=== PATIENT | female | born 1980 | race American Indian/Alaskan Native ===

== ENCOUNTER 2019-11-06 05:28 | Emergency (ER) | payer OTHER ==
[2019-11-06 05:56] VITALS: BP 138/69
[2019-11-06] MEDS ORDERED: ACETAMINOPHEN 325 MG TAB PO ONE (06:05)
[2019-11-06 06:52] LABS: Basophils # (Auto) 0.1 K/mm3 (0.0-0.1); Basophils % (Auto) 0.8 % (0.0-1.8); Eosinophils # (Auto) 0.2 K/mm3 (0.0-0.4); Hematocrit 39.2 % (30.3-42.9); Hemoglobin 12.6 gm/dl (10.1-14.3); Lymphocytes # (Auto) 1.5 K/mm3 (1.2-5.4); Lymphocytes % (Auto) 17.2 % (13.4-35.0); Mean Corpuscular HGB Conc 32 % (30-34); Mean Corpuscular Volume 81 fl (79-97); Monocytes # (Auto) 0.7 K/mm3 (0.0-0.8); Monocytes % (Auto) 7.8 % (0.0-7.3); Platelet Count 332 K/mm3 (140-440); Red Blood Count 4.84 M/mm3 (3.65-5.03); Red Cell Distribution Width 14.7 % (13.2-15.2)
[2019-11-06 07:06] LABS: BUN/Creatinine Ratio 18; Blood Urea Nitrogen 11 mg/dL (7-17); Calcium 9.2 mg/dL (8.4-10.2); Hemolysis Index 39
--- NOTE | 2019-11-06 07:35 | XRay Report ---
CHEST 2 VIEWS INDICATION / CLINICAL INFORMATION: productive cough, fever, chills. COMPARISON: None available. FINDINGS: SUPPORT DEVICES: None. HEART / MEDIASTINUM: No significant abnormality. LUNGS / PLEURA: Mild pulmonary vascular congestion. No evidence of pneumonia or pleural effusion. No pneumothorax. ADDITIONAL FINDINGS: No significant additional findings. IMPRESSION: 1. Mild pulmonary vascular congestion. No evidence of pneumonia at this time. Signer Name: Adriane Woodall MD Signed: 11/06/2019 7:31 AM Workstation Name: [id number]
[2019-11-06] MEDS ORDERED: guaiFENesin 100 MG/5 ML ORAL LIQD PO ONE (07:41)
--- NOTE | 2019-11-06 07:45 | Emergency Department Report ---
Minor Respiratory - HPI Chief Complaint: Upper Respiratory Infection Stated Complaint: FEVER/COUGH Time Seen by Provider: 11/06/19 07:26 Duration: 6 days Pain Location: Throat Severity: mild Minor Respiratory: Yes Able to Tolerate Fluids, Yes Ear Pain, Yes Cough, Yes Fev er, No Rhinorrhea, No Sore Throat, No Sick Contacts, No Hemoptysis, No Chest Pain, No Shortness of Breath Other History: This is a 39-year-old female with no prior medical history presents to ED complaining of fever and cold-like symptoms such as coughing, sore throat and ear pain for the past 6 days. Patient states that she was on a cruise to [place] that returned on October 26 patient states October 30 her symptoms started. Patient states she has been taking TheraFlu with no relief. Patient states she is unsure of sick contacts. Patient denies chest pain, shortness of breath, history of COPD or asthma. Patient does mention that yesterday as she was driving she felt her left eye itching so she rubbed it for quite some time and today when she woke up she started it was a bit pink and some dried yellow discharge to the left eye. She denies vision loss, blurry vision, foreign object or eye. ED Review of Systems ROS: Stated complaint: FEVER/COUGH Other details as noted in HPI Comment: All other systems reviewed and negative ED Past Medical Hx - Past Medical History Previous Medical History?: No - Surgical History Past Surgical History?: No - Social History Smoking Status: Never Smoker Substance Use Type: None - Medications Home Medications: Home Medications Medication Instructions Recorded Confirmed Last Taken Type Benzonatate [Tessalon Perles] 100 mg PO Q8HR #30 capsule 11/06/19 Unknown Rx Tobramycin 0.3% [Tobrex] 1 - 2 drop OP Q8HR #1 bottle 11/06/19 Unknown Rx Minor Respiratory Exam - Exam General: Vital signs noted. No distress. Alert and acting appropriately. HEENT: Yes Moist Mucous Membranes (No orbital swelling, redness or tenderness), No Pharyngeal Erythema, No Pharyngeal Exudates, No Rhinorrhea, No Conjuctival Injection, No Frontal Tenderness, No Maxillary Tenderness Ear: Neither TM Bulge, Neither TM Erythema, Neither EAC Pain, Neither EAC Discharge Neck: Yes Supple, No Adenopathy Lungs: Yes Good Air Exchange, No Wheezes, No Ronchi, No Stridor, No Cough, No Labored Respirations, No Retractions, No Use of Accessory Muscles, No Other Abnormal Lung Sounds Heart: Yes Regular, No Murmur Abdomen: Yes Normal Bowel Sounds, No Tenderness, No Peritoneal Signs Skin: No Rash, No Edema Neurologic: Alert and oriented, no deficits. Musculoskeletal: Unremarkable. ED Course Vital Signs 11/06/19 05:49 Temperature 100.9 F H Pulse Rate 101 H Respiratory 18 Rate Blood Pressure 138/69 O2 Sat by Pulse 97 Oximetry ED Medical Decision Making - Lab Data Result diagrams: 11/06/19 06:31 11/06/19 06:31 Laboratory Last Values WBC 8.6 K/mm3 (4.5-11.0) 11/06/19 06:31 RBC 4.84 M/mm3 (3.65-5.03) 11/06/19 06:31 Hgb 12.6 gm/dl (10.1-14.3) 11/06/19 06:31 Hct 39.2 % (30.3-42.9) 11/06/19 06:31 MCV 81 fl (79-97) 11/06/19 06:31 MCH 26 pg (28-32) L 11/06/19 06:31 MCHC 32 % (30-34) 11/06/19 06:31 RDW 14.7 % (13.2-15.2) 11/06/19 06:31 Plt Count 332 K/mm3 (140-440) 11/06/19 06:31 Lymph % (Auto) 17.2 % (13.4-35.0) 11/06/19 06:31 [place] % (Auto) 7.8 % (0.0-7.3) H 11/06/19 06:31 Eos % (Auto) 2.0 % (0.0-4.3) 11/06/19 06:31 Baso % (Auto) 0.8 % (0.0-1.8) 11/06/19 06:31 Lymph # 1.5 K/mm3 (1.2-5.4) 11/06/19 06:31 [place] # 0.7 K/mm3 (0.0-0.8) 11/06/19 06:31 Eos # 0.2 K/mm3 (0.0-0.4) 11/06/19 06:31 Baso # 0.1 K/mm3 (0.0-0.1) 11/06/19 06:31 Seg Neutrophils % 72.2 % (40.0-70.0) H 11/06/19 06:31 Seg Neutrophils # 6.2 K/mm3 (1.8-7.7) 11/06/19 06:31 Sodium 137 mmol/L (137-145) 11/06/19 06:31 Potassium 4.1 mmol/L (3.6-5.0) 11/06/19 06:31 Chloride 101.4 mmol/L (98-107) 11/06/19 06:31 Carbon Dioxide 22 mmol/L (22-30) 11/06/19 06:31 Anion Gap 18 mmol/L 11/06/19 06:31 BUN 11 mg/dL (7-17) 11/06/19 06:31 Creatinine 0.6 mg/dL (0.7-1.2) L 11/06/19 06:31 Estimated GFR > 60 ml/min 11/06/19 06:31 BUN/Creatinine Ratio 18 % 11/06/19 06:31 Glucose 108 mg/dL (65-100) H 11/06/19 06:31 Calcium 9.2 mg/dL (8.4-10.2) 11/06/19 06:31 - Radiology Data Radiology results: report reviewed, image reviewed Fluoro Time In Minutes: CHEST 2 VIEWS INDICATION / CLINICAL INFORMATION: productive cough, fever, chills. COMPARISON: None available. FINDINGS: SUPPORT DEVICES: None. HEART / MEDIASTINUM: No significant abnormality. LUNGS / PLEURA: Mild pulmonary vascular congestion. No evidence of pneumonia or pleural effusion. No pneumothorax. ADDITIONAL FINDINGS: No significant additional findings. IMPRESSION: 1. Mild pulmonary vascular congestion. No evidence of pneumonia at this time. Signer Name: Adriane Woodall MD Signed: 11/06/2019 7:31 AM Workstation Name: [id number] Transcribed By: JR Dictated By: Adriane Woodall MD Electronically Authenticated By: Adriane Woodall MD Signed Date/Time: 11/06/19 0731 - Medical Decision Making 39-year-old female presents with flulike symptoms. Fever resolved during the ED stay. Chest x-ray shows no acute findings for pneumonia or any lung disease. Discussed with patient to continue symptomatic relief with [id number] medications such as Tylenol or Motrin for fever, Robitussin for cough Discussed continue Tylenol and Motrin as needed for fever and pain. Discussed increase fluids and diet intake. Discussed rest much needed. Discussed with the patient to continue daily vitamin C for immune booster. Discussed follow-up with primary care physician in 3-5 days, She agrees to following instructions and follow-up Discussed with patient if symptoms worsen she may return to ED immediately Vital signs stable. Patient is in no acute distress Noted that patient does have a travel history to [place] which is a low suspicion ready for work over 19. CBC and BMP shows no abnormalities there are no leukocytosis which does not suggest some acute infection. Critical care attestation.: If time is entered above; I have spent that time in minutes in the direct care of this critically ill patient, excluding procedure time. ED Disposition Clinical Impression: Upper respiratory infection, Acute conjunctivitis of left eye Disposition: DC- TO HOME OR SELFCARE Is pt being admited?: No Does the pt Need Aspirin: No Condition: Stable Instructions: Conjunctivitis (ED), Upper Respiratory Infection (ED), Viral Syndrome (ED) Additional Instructions: Make sure to follow up with the primary care physician as discussed. Take all your medications as you've been prescribed. If you have any worsening symptoms or develop new symptoms please return to ED immediately. Prescriptions: Benzonatate [Tessalon Perles] 100 mg PO Q8HR #30 capsule Tobramycin 0.3% [Tobrex] 1 - 2 drop OP Q8HR #1 bottle Referrals: [facility] [Outside] - 3-5 Days [facility] [Outside] - 3-5 Days Forms: Accompanied Note, Work/School Release Form(ED) Time of Disposition: 07:57
== END 2019-11-06 08:21 | disposition home or self-care (01) ==
LOC: ED 05:28
DX: J06.9 Acute upper respiratory infection, unspecified (principal); H10.9 Unspecified conjunctivitis
CPT/HCPCS: 36415; 71046; 80048; 85025; 99283